=== PATIENT | female | born 1980 | race Caucasian/White ===

== ENCOUNTER 2020-05-15 11:05 | Emergency (ER) | payer OTHER ==
[2020-05-15 11:11] VITALS: BP 140/90; PULSE 85; TEMP 98.3; BMI 27.4
[2020-05-15] MEDS ORDERED: ACETAMINOPHEN 500 MG TABLET (FP) PO ONE (11:33)
[2020-05-15] MEDS ORDERED: ACETAMINOPHEN 500 MG TABLET (FP) ONE (11:34)
== END 2020-05-15 12:28 | disposition home or self-care (01) ==
LOC: JERFT 11:05 → JER 11:05 → JERFT 12:28
DX: M25.511 Pain in right shoulder (principal)
CPT/HCPCS: 72050-TC-FY; 73030-TC-RT-FY; 99284-25

== ENCOUNTER 2021-06-09 14:04 | Emergency (ER) | payer OTHER ==
[2021-06-09 14:23] VITALS: BP 137/87; PULSE 69; TEMP 98.3; BMI 27.8
[2021-06-09] MEDS ORDERED: CYCLOBENZAPRINE HCL 10 MG TABLET (FP) PO ONE (16:04)
[2021-06-09] MEDS ORDERED: LIDOCAINE 5% TOPICAL PATCH TP ONE (16:04)
[2021-06-09] MEDS ORDERED: LIDOCAINE 5% TOPICAL PATCH ONE (16:14)
[2021-06-09] MEDS ORDERED: CYCLOBENZAPRINE HCL 10 MG TABLET (FP) ONE (16:14)
[2021-06-09] MEDS ORDERED: LIDOCAINE PATCH REMOVAL MC ONE (22:00)
== END 2021-06-09 16:44 | disposition home or self-care (01) ==
LOC: JERFT 14:04
DX: M54.41 Lumbago with sciatica, right side (principal)
CPT/HCPCS: 99283-25

== ENCOUNTER 2023-07-05 10:00 | Emergency (ER) | payer OTHER ==
[2023-07-05 10:10] VITALS: BP 139/82; PULSE 75; RESP 18; TEMP 98; BMI 27.4
[2023-07-05] MEDS ORDERED: METHOCARBAMOL 500 MG TABLET ONE (11:11)
[2023-07-05] MEDS ORDERED: LIDOCAINE 4% PATCH TP ONE (11:11)
[2023-07-05] MEDS: LIDOCAINE 4% PATCH TP ONE (11:17)
[2023-07-05] MEDS: METHOCARBAMOL 500 MG TABLET PO ONE (11:17)
== END 2023-07-05 14:14 | disposition home or self-care (01) ==
LOC: JERFT 10:00
DX: S46.812A Strain of other muscles, fascia and tendons at shoulder and upper arm level, left arm, initial encounter (principal); M25.512 Pain in left shoulder; X50.9XXA Other and unspecified overexertion or strenuous movements or postures, initial encounter; Y99.0 Civilian activity done for income or pay
CPT/HCPCS: 73030-TC-LT-FY; 73030-TC-RT-FY; 99283-25

== ENCOUNTER 2023-09-05 11:06 | Emergency (ER) | payer OTHER ==
[2023-09-05 11:28] VITALS: PULSE 88; RESP 16; TEMP 98.3; BMI 28.4
[2023-09-05] MEDS ORDERED: METOCLOPRAMIDE HCL INJECTION 10 MG/2 ML VIAL ONE (11:59)
[2023-09-05] MEDS ORDERED: ACETAMINOPHEN INJECTION 100 ML IVPB ONE (12:00)
[2023-09-05] MEDS: ONDANSETRON 4 MG/2 ML VIAL IVPUSH ONE (12:09)
[2023-09-05] MEDS: METOCLOPRAMIDE HCL INJECTION 10 MG/2 ML VIAL IVPUSH ONE (12:09)
[2023-09-05] MEDS: LACTATED RINGERS SOLUTION 1000 ML INFUS.BAG IV ONE (12:09)
[2023-09-05] MEDS: ACETAMINOPHEN 1000 MG/100 ML BAG IVPB ONE (12:09)
[2023-09-05 13:27] VITALS: BP 138/85
== END 2023-09-05 13:27 | disposition home or self-care (01) ==
LOC: JER 11:06
PROC: 3E033NZ Introduction of Analgesics, Hypnotics, Sedatives into Peripheral Vein, Percutaneous Approach (ICD-10-PCS; principal; 2023-09-05)
PROC: 3E033GC Introduction of Other Therapeutic Substance into Peripheral Vein, Percutaneous Approach (ICD-10-PCS; 2023-09-05)
DX: G43.909 Migraine, unspecified, not intractable, without status migrainosus (principal); R11.0 Nausea; H53.8 Other visual disturbances
CPT/HCPCS: 93005; 93010; 99284-25; J0131